=== PATIENT | male | born 2000 | race Two or more races ===

== ENCOUNTER 2023-05-26 05:23 | Emergency (ER) | payer OTHER ==
[2023-05-26 05:40] VITALS: BP 152/81; PULSE 67; RESP 18; TEMP 98.4; BMI 27.2
[2023-05-26] MEDS ORDERED: DIPHTH,PERTUSS(ACELL),TET 0.5 ML DISP.SYRIN IM ONE (06:11)
[2023-05-26] MEDS: DIPHTH,PERTUSS(ACELL),TET 0.5 ML DISP.SYRIN IM ONE (06:14)
== END 2023-05-26 06:17 | disposition left against medical advice (07) ==
LOC: JER 05:23
PROC: 0HQFXZZ Repair Right Hand Skin, External Approach (ICD-10-PCS; principal; 2023-05-26)
PROC: 3E0234Z Introduction of Serum, Toxoid and Vaccine into Muscle, Percutaneous Approach (ICD-10-PCS; 2023-05-26)
DX: S61.210A Laceration without foreign body of right index finger without damage to nail, initial encounter (principal); W26.0XXA Contact with knife, initial encounter
CPT/HCPCS: 12001-25; 90471; 90715; 99282-25